=== PATIENT | female | born 1945 | race Caucasian/White ===

== ENCOUNTER 2025-04-21 13:00 | Outpatient (RCR) | payer OTHER, SELFPAY ==
--- NOTE | 2025-02-20 11:40 | OPREHPOC ---
Outpatient Therapy Plan of Care This is a Multidisciplinary Plan of Care that may contain components documented by all disciplines (PT, OT, and ST.) PT Problem 1 PT Problem #1 Knowledge Deficit PT Goal 1 Goal / Goal Update 1. Patient will perform independent HEP 2. Patient will verbalize urge suppression strategies Target Visit 2 PT Problem 2 PT Problem #2 Impaired Strength PT Goal 1 Goal / Goal Update 1. Improve pelvic floor strength to 5/5 to reduce frequent urination Target Visit 4 PT Problem 3 PT Problem #3 Impaired Functional ADLs PT Goal 1 Goal / Goal Update 1. Patient will void no more than 8 times in a 24 hour period 2. Patient will be able to hold 30 minutes prior to voiding 3. Patient will report no limitations with daily life due to urination Target Visit 4
--- NOTE | 2025-02-20 11:41 | PTOPEVAL1 ---
Assessment and note entered by Iris Nascimento DPT Evaluation Information Assessment Status Evaluation Diagnosis r35.0 ICD-10 Condition Codes (PT) Weakness R53.1 Subjective Information Pt has diagnosis of increased urinary frequency and OAB that started a few months ago. Has been taking oxybutanine but unsure if she wants to take it due to side effects. Currently voiding 7-8 times a day and 2-3 times at night, before medicine was around 10 and 4-5 times at night. States she is drinking a lot of water to counter act feeling dry from the medicine. Denies urinary incontinence. Can only hold urge to void 4-5 minutes. Denies pain with urination. BM 1-2 times a day, no pain. No history of significant pelvic pain. Pt has been 7 times, 4 vaginal deliveries. Hysterectomy in 2012 with bladder sling. No other ALTERATION HAND or b/b history. Pt reports a lot of fatigue due to being up to void. Patient goal: know if there is something to do to avoid taking medicine Returns to MD is not scheduled but should make an appointment soon. Reported Pain Level Pain Score 0: Self Report Assessment PT Clinical Summary The patient is presenting to skilled therapy with a diagnosis of OAB and reports of increased urinary frequency. She presents with decreased pelvic floor, abdominal, and hip strength which are contributing to her frequent urination. She will benefit from therapy to address strength and restore full function, in addition to education on urge suppression strategies. Plan of Care Interventions Manual Therapy,Neuro Re-education,Patient/ Caregiver Education,Therapeutic Activities, Therapeutic Exercise PT Services Indicated Yes Treatment Frequency and 1 time a week for 4 visits Duration These treatments will address the objective and functional deficits as defined above. The patient will be advanced safely and appropriately in order for the patient to progress towards his/her prior level of function. Additional exercises will be introduced and as well as a comprehensive home exercise program upon discharge, if needed, ?to ensure carryover of functional gains achieved in the clinic. This treatment plan has been reviewed and agreement upon by the patient.
--- NOTE | 2025-02-24 10:43 | PCPTNOTE ---
Patient did not show up for appointment 02/24/25. Left voicemail to offer patient to reschedule.
--- NOTE | 2025-03-17 14:04 | OPREHPOC ---
Outpatient Therapy Plan of Care This is a Multidisciplinary Plan of Care that may contain components documented by all disciplines (PT, OT, and ST.) PT Problem 1 PT Problem #1 Knowledge Deficit PT Goal 1 Goal / Goal Update 1. Patient will perform independent HEP 2. Patient will verbalize urge suppression strategies Target Visit 2 Progress Met PT Problem 2 PT Problem #2 Impaired Strength PT Goal 1 Goal / Goal Update 1. Improve pelvic floor strength to 5/5 to reduce frequent urination update 03/17/25 1. no change Target Visit 5 Progress Not Met PT Problem 3 PT Problem #3 Impaired Functional ADLs PT Goal 1 Goal / Goal Update 1. Patient will void no more than 8 times in a 24 hour period 2. Patient will be able to hold 30 minutes prior to voiding 3. Patient will report no limitations with daily life due to urination Target Visit 4 Progress Met
--- NOTE | 2025-03-17 14:04 | PTOPPROG ---
Assessment and note entered by Iris Nascimento DPT Evaluation Information Assessment Status Progress Diagnosis r35.0 ICD-10 Condition Codes (PT) Weakness R53.1 Subjective Information Lately has been voiding 4 times a day, 1-2 times at night depending on how much she is drinking. States she does have a call in to her doctor to discuss stopping the OAB medicine. Can hold urge to void at least 30 minutes. Still no urinary incontinence. Assessment PT Clinical Summary The patient has made excellent progress in therapy and reports ability to hold urge to void at least 30 minutes, and decreased overall frequency of voiding. She continues to have no urinary incontinence. She demonstrates improved hip and abdominal strength as well as improved pelvic floor coordination. Due to her progress but continued weakness and plan to decrease/stop her OAB medicine with discussion with her MD, plan to follow up with 1 visit of therapy in 4 weeks. The patient has been educated to continue HEP independently in order to further improve pelvic floor strength in the meantime. Plan of Care Interventions Manual Therapy,Neuro Re-education,Patient/ Caregiver Education,Therapeutic Activities, Therapeutic Exercise PT Services Indicated Yes Treatment Frequency and 1 visit in 4 weeks Duration These treatments will address the objective and functional deficits as defined above. The patient will be advanced safely and appropriately in order for the patient to progress towards his/her prior level of function. Additional exercises will be introduced and as well as a comprehensive home exercise program upon discharge, if needed, ?to ensure carryover of functional gains achieved in the clinic. This treatment plan has been reviewed and agreement upon by the patient.
--- NOTE | 2025-04-21 13:33 | OPREHPOC ---
Outpatient Therapy Plan of Care This is a Multidisciplinary Plan of Care that may contain components documented by all disciplines (PT, OT, and ST.) PT Problem 1 PT Problem #1 Knowledge Deficit PT Goal 1 Goal / Goal Update 1. Patient will perform independent HEP 2. Patient will verbalize urge suppression strategies Target Visit 2 Progress Met PT Problem 2 PT Problem #2 Impaired Strength PT Goal 1 Goal / Goal Update 1. Improve pelvic floor strength to 5/5 to reduce frequent urination update 03/17/25 1. no change update 04/21/35 1. not reassessed Target Visit 5 Progress Not Met PT Problem 3 PT Problem #3 Impaired Functional ADLs PT Goal 1 Goal / Goal Update 1. Patient will void no more than 8 times in a 24 hour period 2. Patient will be able to hold 30 minutes prior to voiding 3. Patient will report no limitations with daily life due to urination Target Visit 4 Progress Met
--- NOTE | 2025-04-21 13:33 | PTOPDC ---
Assessment and note entered by Irsi Nascimento DPT Evaluation Information Assessment Status Discharge Diagnosis r35.0 ICD-10 Condition Codes (PT) Weakness R53.1 Subjective Information Pt states she did stop taking her OAB medicine at least 3 weeks ago. Voiding 4-6 times during the day, 2 times at night. Has been traveling and not doing her HEP as much. Can hold urge to void 30-60 minutes depending on the situation. No urinary incontinence. Reported Pain Level Pain Score 0: Self Report Assessment PT Clinical Summary The patient has made excellent progress in therapy and reports overall normalized urinary frequency, ability to hold urge and no urinary incontinence. She does wake up to 2 times at night to void and have discussed overall sleep quality. She has been educated to continue HEP and urge suppression techniques. Due to her progress, plan for discharge at this time. Patient will follow up with MD and/or PT as needed. Plan of Care PT Services Indicated No
== END 2025-04-21 14:26 | disposition home or self-care (01) ==
LOC: ANHPT 13:00
PROVIDERS: PCP Internal Medicine; Visit Provider Internal Medicine
DX: R35.0 Frequency of micturition (principal)
CPT/HCPCS: 97112; 97161; 97530